=== PATIENT | male | born 1985 | race Caucasian/White ===

== ENCOUNTER 2022-03-04 12:40 | Emergency (ER) | payer OTHER ==
[2022-03-04 13:38] LABS: HEMOGLOBIN 15.8 gm/dl (14.0-17.5); RED BLOOD COUNT 5.2 M/UL (4.20-5.50); WHITE BLOOD COUNT 9.8 K/UL (4.5-11.0)
[2022-03-04 13:59] LABS: BUN/CREATININE RATIO 8 (0-10)
[2022-03-04] MEDS ORDERED: CITROMA296 ML PO (16:59)
[2022-03-04] MEDS ORDERED: HALOPERIDOL10 MG PO ×2 (20:34→20:36)
== END 2022-03-04 17:10 | disposition home or self-care (01) ==
LOC: ER1 12:40
PROVIDERS: Physician Assistant
DX: R10.11 Right upper quadrant pain (principal); K59.00 Constipation, unspecified; I10 Essential (primary) hypertension; F17.210 Nicotine dependence, cigarettes, uncomplicated; R10.811 Right upper quadrant abdominal tenderness; R10.812 Left upper quadrant abdominal tenderness
CPT/HCPCS: 80053; 80307; 81001; 82150; 83690; 85025; 96374; 99284; J2405; J7030; Q9967

== ENCOUNTER 2022-03-04 17:17 | Emergency (ER) | payer OTHER ==
[~2022-03-04 17:17] MED LIST: CITROMA296 ML PO
[2022-03-04] MEDS ORDERED: HALOPERIDOL10 MG PO ×2 (20:34→20:36)
== END 2022-03-04 20:58 ==
LOC: ER1 17:17
DX: Z76.0 Encounter for issue of repeat prescription (principal); F17.210 Nicotine dependence, cigarettes, uncomplicated
CPT/HCPCS: 99281

== ENCOUNTER 2022-03-04 22:16 | Emergency (ER) | payer OTHER ==
[~2022-03-04 22:16] MED LIST changes: +HALOPERIDOL10 MG PO
== END 2022-03-04 22:31 | disposition home or self-care (01) ==
LOC: ER1 22:16
DX: R10.9 Unspecified abdominal pain (principal)
CPT/HCPCS: 99283